=== PATIENT | female | born 1980 | race Hispanic/Latino ===

== ENCOUNTER 2022-11-20 22:34 | Emergency (ER) | payer OTHER ==
[~2022-11-20] VITALS: Ht 162.6 cm; Wt 90.7 kg
[2022-11-20] MEDS ORDERED: DIPHENHYDRAMINE HCL INJ 50 MG/ML VIAL IV STA (23:03)
[2022-11-20] MEDS ORDERED: METOCLOPRAMIDE HCL 10 MG/2ML VIAL IV ONE (23:15)
[2022-11-21] MEDS ORDERED: LACTATED RINGER'S 1,000 ML IV ONE (00:15)
[2022-11-21] MEDS ORDERED: METOCLOPRAMIDE HCL 10 MG/2ML VIAL ONE (00:23)
[2022-11-21] MEDS ORDERED: DIPHENHYDRAMINE HCL INJ 50 MG/ML VIAL ONE (00:23)
[2022-11-21] MEDS ORDERED: LACTATED RINGER'S 1,000 ML ONE (00:24)
[2022-11-21] MEDS ORDERED: ONDANSETRON ODT4 MG PO (00:42)
[2022-11-21 01:35] VITALS: BP 124/76
== END 2022-11-21 01:35 | disposition home or self-care (01) ==
LOC: FSED 22:38
DX: R10.13 Epigastric pain (principal); K58.9 Irritable bowel syndrome, unspecified; R11.0 Nausea
CPT/HCPCS: 74176; 80053; 81003; 81025; 85025; 93005; 99284; C9113; J1200; J2765; J7121

== ENCOUNTER 2024-03-13 22:23 | Emergency (ER) | payer SELFPAY ==
[~2024-03-13] VITALS: Ht 162.6 cm; Wt 97.5 kg
[~2024-03-13 22:23] MED LIST: ONDANSETRON ODT4 MG PO
[2024-03-13 22:29] VITALS: PULSE 84; RESP 18; TEMP 98.1; O2SAT 98
[2024-03-13] MEDS ORDERED: CEFDINIR300 MG PO (22:49)
[2024-03-13] MEDS ORDERED: IBUPROFEN200 MG PO (22:49)
[2024-03-13] MEDS: CEFTRIAXONE 1 GM VIAL IM ONE (22:52)
[2024-03-13] MEDS: ACETAMINOPHEN 325 MG TAB PO ONE (22:53)
[2024-03-14] MEDS ORDERED: DIFLUCAN100 MG PO (06:59)
== END 2024-03-13 23:15 | disposition home or self-care (01) ==
LOC: FSED 22:26
DX: R30.0 Dysuria (principal); N39.0 Urinary tract infection, site not specified; R53.81 Other malaise; R68.83 Chills (without fever)
CPT/HCPCS: 81003; 81025; 87086; 99283; J0696